=== PATIENT | female | born 1970 | race Caucasian/White ===

== ENCOUNTER 2017-10-13 09:55 | Outpatient (CLI) | payer BC ==
--- NOTE | 2017-10-13 11:39 | RAD ---
RIGHT FOOT TWO VIEWS: HISTORY: Pain. COMPARISON: None. 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 There is sclerosis on either side of the synchondrosis. 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 Large plantar and dorsal calcaneal spurs. Dorsal spurs of t he talar neck are present. Lisfranc interval appears to be maintained. 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 POS: [facility]
== END 2017-10-13 09:56 | disposition home or self-care (01) ==
LOC: RAD-FRANK 09:55
PROVIDERS: ATTEND Nurse Practitioner Family
DX: M79.671 Pain in right foot (principal); M19.071 Primary osteoarthritis, right ankle and foot

== ENCOUNTER 2017-12-16 16:08 | Outpatient (CLI) | payer BC | END 2017-12-16 16:09 | disposition home or self-care (01) | LOC: BICMAMMO 16:08 | PROVIDERS: ATTEND Obstetrics & Gynecology | DX: Z12.31 Encounter for screening mammogram for malignant neoplasm of breast (principal); R92.1 Mammographic calcification found on diagnostic imaging of breast | CPT/HCPCS: 77063; 77067 ==

== ENCOUNTER 2018-06-11 20:29 | Emergency (ER) | payer BC ==
[2018-06-11] MEDS ORDERED: Ondansetron HCl/PF 4 MG/2 ML Vial ONE (21:31)
[2018-06-11 21:46] LABS: #Basophils 0.1 thou/uL (0.0-0.2); #Eosinphils 0.6 thou/uL (0.0-0.7); #Lymphocytes 1.9 thou/uL (1.20-3.40); #Monocytes 0.6 thou/uL (0.11-0.59); #Neutrophils 5.6 thou/uL (1.40-6.50); %Basophils 0.7 % (0.0-1.0); %Eosinophils 6.8 % (0.0-10.0); %Lymphocytes 21.7 % (21.0-51.0); %Monocytes 6.5 % (0.0-10.0); %Neutrophils 64.2 % (42.0-75.0); Hemoglobin 13.4 g/dL (12.0-16.0); Mean Corpuscular HGB CONC 33.8 g/dL (32.0-36.0); Mean Corpuscular Hemoglobin 30.7 pg (27.0-31.0); Mean Corpuscular Volume 90.8 fL (78.0-98.0); Mean Platelet Volume 6.8 fL (7.4-10.4); Platelet Count 307 thou/uL (130-400); RBC Distribution Width 11.8 % (11.5-14.5); Red Blood Cell (RBC) Count 4.36 mill/uL (4.20-5.40); White Blood Cell (WBC) Count 8.7 thou/uL (4.8-10.8)
[2018-06-11 21:52] LABS: Bilirubin Negative (Negative); Blood, Urine Negative (Negative); Clarity CLOUDY (Clear); Glucose, Urine (Dipstick) Negative (Negative); Leukocyte Moderate (Negative); Nitrite Negative (Negative); Protein, Urine (Dipstick) Negative (Neg-Trace); Specific Gravity, Urine 1.009 (1.002-1.036); Urobilinogen 0.2 mg/dL (0.2-1.0); pH, Urine 7.5 (5.0-9.0)
--- NOTE | 2018-06-11 21:52 | RAD ---
PORTABLE UPRIGHT FRONTAL CHEST RADIOGRAPH 06/11/18 COMPARISON: None. HISTORY: Palpitations and chest pain. FINDINGS: No pneumothorax, pleural fluid, focal consolidation or alveolar edema. Heart and mediastinal contours appear within normal limits. Clips in right upper quadrant suggests prior cholecystectomy. IMPRESSION: No acute findings. POS: [facility]
[2018-06-11 21:53] LABS: Pregnancy Test - Urine (BHCG) Negative (Negative); Pregu Control Bar Appear? YES (CONTROL BAR); Specific Gravity 1.009 (1.002-1.036)
[2018-06-11 21:54] LABS: Bacteria/HPF None Seen HPF (None Seen); Hyaline Casts/LPF 0-3 HYALINE CAST LPF (0-3 Hyaline); Pregu Control Background? CLEAR/WHITE (CLR/WHITE); RBC/HPF 0-3 HPF (0-3); Squamous Epithelial None Seen HPF (0-3)
[2018-06-11 21:57] LABS: ALT (SGPT) 14 U/L (8-55); AST (SGOT) 18 U/L (5-34); Albumin 4.1 g/dL (3.5-5.0); Alkaline Phosphatase 93 U/L (40-150); Anion Gap 13 mmol/L (10-20); BUN (Urea Nitrogen) 17 mg/dL (7.0-18.7); Bilirubin, Total 0.4 mg/dL (0.2-1.2); CK (CPK) 91 U/L (29-168); Calc. Creatinine Clearance 0 mL/min (70-130); Calcium 9.4 mg/dL (7.8-10.44); Carbon Dioxide 24 mmol/L (22-29); Chloride 104 mmol/L (98-107); Estimated GFR-MDRD 79; Globulin 2.5 g/dL (2.4-3.5); Glucose 89 mg/dL (70-105); Lipase 23 U/L (8-78); Potassium 3.9 mmol/L (3.5-5.1); Protein, Total 6.6 g/dL (6.0-8.3); Sodium 137 mmol/L (136-145)
[2018-06-11 22:01] LABS: CKMB 1.4 ng/mL (0-6.6); Troponin I Less than 0.010 ng/mL (< 0.028)
== END 2018-06-11 23:41 | disposition home or self-care (01) ==
LOC: ERS 20:29
DX: R00.2 Palpitations (principal); G43.909 Migraine, unspecified, not intractable, without status migrainosus; E11.9 Type 2 diabetes mellitus without complications; F41.9 Anxiety disorder, unspecified; F32.9 Major depressive disorder, single episode, unspecified; Z79.899 Other long term (current) drug therapy; Z79.82 Long term (current) use of aspirin
CPT/HCPCS: 71045; 80053; 81003; 81015; 81025; 82550; 82553; 83690; 84484; 85025; 87077; 87086; 93005; 94760; 96374; J2405

== ENCOUNTER 2018-06-14 08:56 | Outpatient (CLI) | payer BC ==
--- NOTE | 2018-06-14 10:00 | RAD ---
FOUR VIEW LEFT KNEE: Clinical history: Pain. FINDINGS: There is moderate degenerative capsular distention at the suprapatellar bursa. No acute fracture is v isualized. There is mild osteoarthritis. IMPRESSION: 1. No acute osseous abnormality. 2. Moderate joint capsular distention. Correlate clinically. POS: [facility]
== END 2018-06-14 08:57 | disposition home or self-care (01) ==
LOC: RAD-FRANK 08:56
PROVIDERS: ATTEND Nurse Practitioner Family
DX: M25.562 Pain in left knee (principal); M25.862 Other specified joint disorders, left knee

== ENCOUNTER 2019-01-24 01:19 | Outpatient (CLI) | payer BC ==
[2019-01-24 17:45] LABS: #Basophils 0.1 thou/uL (0.0-0.2); #Eosinphils 0.1 thou/uL (0.0-0.7); #Lymphocytes 2.1 thou/uL (1.20-3.40); #Monocytes 0.7 thou/uL (0.11-0.59); %Basophils 0.8 % (0.0-1.0); %Eosinophils 1.8 % (0.0-10.0); %Lymphocytes 26.7 % (21.0-51.0); %Monocytes 8.2 % (0.0-10.0); %Neutrophils 62.5 % (42.0-75.0); Hemoglobin 13.1 g/dL (12.0-16.0); Mean Corpuscular HGB CONC 33.9 g/dL (32.0-36.0); Mean Corpuscular Hemoglobin 30.8 pg (27.0-31.0); Mean Corpuscular Volume 90.9 fL (78.0-98.0); Mean Platelet Volume 6.3 fL (7.4-10.4); Platelet Count 327 thou/uL (130-400); RBC Distribution Width 11.8 % (11.5-14.5); Red Blood Cell (RBC) Count 4.25 mill/uL (4.20-5.40)
[2019-01-24 18:33] LABS: Anion Gap 13 mmol/L (10-20); BUN (Urea Nitrogen) 15 mg/dL (7.0-18.7); Calc. Creatinine Clearance 0 mL/min (70-130); Calcium 9.5 mg/dL (7.8-10.44); Carbon Dioxide 25 mmol/L (22-29); Chloride 106 mmol/L (98-107); Estimated GFR-MDRD 79; Glucose 113 mg/dL (70-105); Potassium 3.5 mmol/L (3.5-5.1); Sodium 140 mmol/L (136-145)
--- NOTE | 2019-01-26 12:00 | EKG ---
Test Reason : Blood Pressure : / mmHG Vent. Rate : 089 BPM Atrial Rate : 089 BPM P-R Int : 156 ms QRS Dur : 082 ms QT Int : 368 ms P-R-T Axes : 057 -04 045 degrees QTc Int : 447 ms Normal sinus rhythm Normal ECG When compared with ECG of 11-JUN-2018 20:34, No significant change was found Confirmed by DR. Shaheen ALONSO ([id number]) on 01/26/2019 11:59:31 AM Referred By: IERO Confirmed By:DR. Shaheen ALONSO
== END 2019-01-24 01:20 | disposition home or self-care (01) ==
LOC: LABBT 01:19
PROVIDERS: ATTEND Orthopaedic Surgery
DX: Z01.818 Encounter for other preprocedural examination (principal); S83.512A Sprain of anterior cruciate ligament of left knee, initial encounter
CPT/HCPCS: 80048; 85025; 93005; 93010

== ENCOUNTER 2019-01-26 06:11 | Observation (INO) | payer BC ==
[2019-01-24 16:51] VITALS: BMI 29.9
[2019-01-26] MEDS ORDERED: Fentanyl 100 MCG/2 ML VIAL ONE ×3 (07:01→09:45)
[2019-01-26] MEDS ORDERED: Midazolam HCl 2 mg/2 ml Vial ONE (07:01)
[2019-01-26] MEDS ORDERED: Dexamethasone 4 mg/ml Vial ONE (07:01)
[2019-01-26] MEDS ORDERED: Zolpidem Tartrate 5 MG TAB PO PRN (07:41)
[2019-01-26] MEDS ORDERED: HYDROcodone/Acetaminophen 10/325 mg Tablet PO PRN (07:41)
[2019-01-26] MEDS ORDERED: Ropivacaine 0.2% 550 ML 550 ML NERVE BLCK SCH (07:41)
[2019-01-26] MEDS ORDERED: Ondansetron PF 4 MG/2 ML Vial IVP PRN (07:41)
[2019-01-26] MEDS ORDERED: Promethazine HCl 25 MG/ML VIAL IM PRN (07:41)
[2019-01-26] MEDS ORDERED: traMADol HCl 50 MG TAB PO PRN ×2 (07:41)
[2019-01-26] MEDS ORDERED: Meperidine HCl/PF 25 MG/ML VIAL ONE (09:44)
[2019-01-26] MEDS ORDERED: Ondansetron HCl/PF 4 MG/2 ML Vial IVP PRN (10:06)
[2019-01-26] MEDS ORDERED: Non-Formulary Medication 1 EACH PO PRN (10:06)
[2019-01-26] MEDS ORDERED: Promethazine HCl 25 MG/ML VIAL IM/IV PRN (10:06)
[2019-01-26] MEDS ORDERED: Meperidine HCl/PF 25 MG/ML VIAL IV PRN (10:06)
[2019-01-26] MEDS ORDERED: Morphine 4 MG/ML VIAL SLOW IVP PRN (10:37)
[2019-01-26] MEDS ORDERED: Bisacodyl 10 MG SUPP PR PRN (10:37)
[2019-01-26] MEDS ORDERED: Milk Of Magnesia 30 ML UDCUP PO PRN (10:37)
[2019-01-26] MEDS ORDERED: diphenhydrAMINE 50 MG CAP PO PRN (10:37)
[2019-01-26] MEDS ORDERED: Methocarbamol 500 MG TAB PO PRN (10:37)
[2019-01-26] MEDS ORDERED: Acetaminophen 500 MG TAB PO PRN (10:37)
[2019-01-26] MEDS ORDERED: SUMAtriptan Succinate 50 MG TAB PO PRN (10:38)
[2019-01-26] MEDS ORDERED: Promethazine HCl 12.5 MG SUPP PR PRN (10:38)
[2019-01-26] MEDS ORDERED: Sodium Chloride 0.9% 1,000 ML IV SCH (10:45)
[2019-01-26] MEDS ORDERED: Ketorolac Tromethamine 30 MG/ML VIAL IVP SCH (12:00)
[2019-01-26] MEDS: Fentanyl 100 MCG/2 ML VIAL SLOW IVP PRN ×2 (13:03→21:42)
[2019-01-26] MEDS ORDERED: Ropivacaine 0.5% HCl/PF (150 MG/30 ML VIAL) ONE (14:41)
[2019-01-26] MEDS ORDERED: Ropivacaine 0.2% HCl/PF (40 MG/20 ML VIAL) ONE (14:41)
[2019-01-26] MEDS ORDERED: PROPOFOL 200 MG/20 ML VIAL ONE (15:03)
[2019-01-26] MEDS ORDERED: Ketorolac Tromethamine 30 MG/ML VIAL ONE (15:03)
[2019-01-26] MEDS ORDERED: Dexamethasone 20 MG/5 ML VIAL ONE (15:03)
[2019-01-26] MEDS ORDERED: Ondansetron PF 4 MG/2 ML Vial ONE (15:03)
[2019-01-26] MEDS: CEFAZOLIN 2 GM in Premix Bag 1 BAG IVPB SCH ×2 (15:20→22:42)
[2019-01-26] MEDS: Ketorolac Tromethamine 30 MG/ML VIAL IVP SCH ×2 (15:20→20:36)
--- NOTE | 2019-01-26 16:07 | OP ---
DATE OF PROCEDURE: 01/26/2019 PREOPERATIVE DIAGNOSES: Left knee anterior cruciate ligament tear and medial meniscus tear. POSTOPERATIVE DIAGNOSES: Left knee anterior cruciate ligament tear and medial meniscus tear. PROCEDURES PERFORMED: 1. Left leg exam under anesthesia. 2. Left knee arthroscopy with arthroscopically assisted anterior cruciate ligament reconstruction using an allograft Achilles tendon. 3. Partial medial meniscectomy. HYDRAULIC OIL TOOL OPERATOR: Vic Ramos PA-C ESTIMATED BLOOD LOSS: Minimal. COMPLICATIONS: None. ANESTHESIA: She did have a general anesthetic as well as a preoperative block. IMPLANTS: We used a 7 x 25 metal interference screw on the femur. We used a 9 x 23 [employer] interference screw in the tibial tunnel. We used a bicortical screw with a soft tissue washer as backup on the tibia. CONDITION: She went to recovery room in stable condition. INDICATIONS: This 48-year-old female comes in complaining of left knee instability and giving away as well as pain and swelling. At this time, she wished to have surgery. DESCRIPTION OF PROCEDURE: After all appropriate consent forms were explained and signed, she was given a general anesthetic. Once the level of anesthesia was appropriate, an exam under anesthesia was performed of the left lower extremity. Positive Letitia and positive pivot shift were noted. She was stable to varus and valgus stress and a negative posterior drawer. At this time, tourniquet was placed on left thigh and leg was placed in arthroscopic leg silva. The limb was then prepped and draped in standard surgical fashion. Limb was then exsanguinated and tourniquet was taken to 300 mmHg. Inferolateral portal was established. Scope was placed into the knee joint. A needle localization technique was then used to make our medial working portal. Diagnostic arthroscopy commenced in the notch. The ACL was found to be torn off the femur. The PCL was intact. Remnant was removed with a shaver. Medial compartment was evaluated. The femoral and tibial cartilage were in good condition. There was a complex tear of the posterior horn of the medial meniscus with a flap component as it turned into the body. A partial meniscectomy was performed using meniscal biter and a shaver to get back to a stable base. Once this was done, lateral compartment was evaluated and felt to be intact. Gutters were swept through and no loose bodies were noted, and the patellofemoral joint was in good condition. At this time, notchplasty was performed. Once the notchplasty was done and the graft had been made on the back table so that the femoral plug was approximately 20 mm in length and a 10 mm diameter, we went ahead and flexed the knee up, and through the medial portal, placed a guidepin through an [id number] guide and up and out the anterolateral thigh. A 10 mm reamer was used to ream our tunnel to nearly 30 mm. At this time, all loose bony and cartilaginous debris were removed from the knee joint. We then went ahead and used our dilators to dilate an impacted tunnel. Tibial guide was then set at the knee at 55 degrees, and a 10-mm reamer was done to ream our tibial tunnel. Again, the dilator was used to dilate and then packed our bone in the tibial tunnel. At this time, we went dry and we flexed the knee up again, placed our guidewire up and out the anterolateral thigh using this to pull a passing suture up into the knee joint. This was then passed down through the tibial tunnel and used to pass our graft up into the knee. A 7 x 25 metal interference screw was then used to fixate our femoral side. Once this was done, the knee was taken through a full motion, and in essentially full extension, the knee was fixated with a 9 x 23 [employer] screw up the tibial tunnel while the posterior drawer was being applied. We then drilled, tapped, and placed a bicortical screw with a soft tissue washer to back this up. Once this was done, again the knee was taken through full range of motion. She went to full extension. She had a full flexion. There was no impingement under direct visualization, and at this time, the scope was removed. Knee was drained. We then closed all of our incisions using deep Vicryl, 2-0 Vicryl, and sutures on the skin. A bulky sterile dressing was applied. Tourniquet was let down. Toes pinked up nicely. The patient was awakened and taken to recovery room in stable condition. All counts were correct at the end of the case and she did receive preoperative IV antibiotics. Job ID: [id number]
[2019-01-26] MEDS: HYDROcodone/Acetaminophen 10/325 mg Tablet PO PRN (20:35)
[2019-01-26] MEDS: Famotidine 20 MG TAB PO SCH (20:35)
[2019-01-26] MEDS ORDERED: Loratadine 10 MG TAB PO SCH (21:00)
[2019-01-26] MEDS ORDERED: clonazePAM 0.5 MG TAB PO SCH (21:00)
[2019-01-27] MEDS: HYDROcodone/Acetaminophen 10/325 mg Tablet PO PRN ×2 (04:12→10:00)
[2019-01-27] MEDS: Ketorolac Tromethamine 30 MG/ML VIAL IVP SCH ×2 (04:15→08:54)
[2019-01-27] MEDS: Fentanyl 100 MCG/2 ML VIAL SLOW IVP PRN (07:14)
[2019-01-27] MEDS ORDERED: metFORMIN 500 MG TAB PO SCH (08:00)
[2019-01-27] MEDS: Famotidine 20 MG TAB PO SCH (08:53)
[2019-01-27] MEDS ORDERED: FLUoxetine HCl 20 MG CAP PO SCH (09:00)
[2019-01-27] MEDS ORDERED: Aspirin 81 mg Enteric Coated Tablet PO SCH (09:00)
[2019-01-27] MEDS ORDERED: METHIONINE PO SCH (09:00)
[2019-01-27] MEDS ORDERED: Multivit, Therapeutic 1 TAB PO SCH (09:00)
[2019-01-27] MEDS ORDERED: Cyanocobalamin (Vitamin B-12) 1,000 MCG TAB PO SCH (09:00)
[2019-01-27 11:31] VITALS: BP 106/74; TEMP 98.1
== END 2019-01-27 11:55 | disposition home or self-care (01) ==
LOC: SDC 06:11 → SURG A 11:27
PROVIDERS: ADMIT Orthopaedic Surgery; ATTEND Orthopaedic Surgery
PROC: 0SBD4ZZ Excision of Left Knee Joint, Percutaneous Endoscopic Approach (ICD-10-PCS; principal; 2019-01-26)
PROC: 0MRP47Z Replacement of Left Knee Bursa and Ligament with Autologous Tissue Substitute, Percutaneous Endoscopic Approach (ICD-10-PCS; 2019-01-26)
DX: S83.512A Sprain of anterior cruciate ligament of left knee, initial encounter (principal); S83.232A Complex tear of medial meniscus, current injury, left knee, initial encounter; M17.12 Unilateral primary osteoarthritis, left knee; F41.9 Anxiety disorder, unspecified; F32.9 Major depressive disorder, single episode, unspecified; G43.909 Migraine, unspecified, not intractable, without status migrainosus; F90.9 Attention-deficit hyperactivity disorder, unspecified type; Z79.82 Long term (current) use of aspirin; Z79.84 Long term (current) use of oral hypoglycemic drugs; Z79.899 Other long term (current) drug therapy; Z91.018 Allergy to other foods; Z88.8 Allergy status to other drugs, medicaments and biological substances; W54.1XXA Struck by dog, initial encounter
CPT/HCPCS: 96374; 96375; 96376; A4306; C1713; G0378; J0690; J1100; J1885; J2175; J2250; J2405; J2704; J2795; J3010

== ENCOUNTER 2019-08-27 19:30 | Outpatient (CLI) | payer BC | END 2019-08-27 19:31 | disposition home or self-care (01) | LOC: SLEEPLAB 19:30 | PROVIDERS: ATTEND Internal Medicine Critical Care Medicine | DX: G47.33 Obstructive sleep apnea (adult) (pediatric) (principal); G25.81 Restless legs syndrome; G47.61 Periodic limb movement disorder; R53.83 Other fatigue; F32.9 Major depressive disorder, single episode, unspecified; G47.10 Hypersomnia, unspecified | CPT/HCPCS: 95810 ==

== ENCOUNTER 2021-01-16 13:09 | Outpatient (CLI) | payer BC | END 2021-01-16 13:10 | disposition home or self-care (01) | LOC: RAD-FRANK 13:09 | PROVIDERS: ATTEND Nurse Practitioner Family | DX: R07.89 Other chest pain (principal) | CPT/HCPCS: 71046 ==

== ENCOUNTER 2022-01-09 14:46 | Outpatient (CLI) | payer BC | END 2022-01-09 14:47 | disposition home or self-care (01) | LOC: RAD-FRANK 14:46 | PROVIDERS: ATTEND Nurse Practitioner Family | DX: S69.91XA Unspecified injury of right wrist, hand and finger(s), initial encounter (principal) ==

== ENCOUNTER 2022-06-16 08:51 | Outpatient (CLI) | payer BC | END 2022-06-16 08:52 | disposition home or self-care (01) | LOC: BICMAMMO 08:51 | PROVIDERS: ATTEND Nurse Practitioner Family | DX: Z12.31 Encounter for screening mammogram for malignant neoplasm of breast (principal) | CPT/HCPCS: 77063; 77067 ==

== ENCOUNTER 2022-10-25 18:09 | Emergency (ER) | payer BC ==
[2022-10-25] MEDS ORDERED: Magnesium 2 GM/50 ML BAG (IN WATER) ONE (19:20)
[2022-10-25] MEDS ORDERED: Aspirin Chewable 81 MG TAB ONE (19:20)
[2022-10-25 19:23] LABS: #Basophils 0.1 thou/uL (0.0-0.2); #Eosinphils 0.1 thou/uL (0.0-0.7); #Lymphocytes 2.1 thou/uL (1.20-3.40); #Monocytes 0.5 thou/uL (0.11-0.59); #Neutrophils 4.3 thou/uL (1.40-6.50); %Basophils 0.7 % (0.0-1.0); %Lymphocytes 29.5 % (21.0-51.0); %Monocytes 7.2 % (0.0-10.0); %Neutrophils 60.5 % (42.0-75.0); Mean Corpuscular HGB CONC 33.7 g/dL (32.0-36.0); Mean Corpuscular Hemoglobin 31.5 pg (27.0-31.0); Mean Corpuscular Volume 93.5 fl (78.0-98.0); Mean Platelet Volume 6.3 fL (7.4-10.4); Platelet Count 331 10x3/uL (130-400); RBC Distribution Width 11.6 % (11.5-14.5); Red Blood Cell (RBC) Count 4.44 mill/uL (4.20-5.40); White Blood Cell (WBC) Count 7.1 10x3/uL (4.8-10.8)
[2022-10-25 19:43] LABS: Acetaminophen Less than 10.0 mcg/mL (10.0-30.0); Alcohol Less than 10 mg/dL (Less than 10); CK (CPK) 66 U/L (29-168); Salicylate Less than 8.0 mg/dL (15.0-30.0)
[2022-10-25 19:49] LABS: ALT (SGPT) 7 U/L (8-55); AST (SGOT) 12 U/L (5-34); Alkaline Phosphatase 66 U/L (40-110); Anion Gap 12 mmol/L (10-20); BUN (Urea Nitrogen) 7 mg/dL (9.8-20.1); Bilirubin, Total 0.4 mg/dL (0.2-1.2); Calc. Creatinine Clearance 0 mL/min (70-130); Calcium 9.1 mg/dL (7.8-10.44); Carbon Dioxide 28 mmol/L (22-29); Chloride 104 mmol/L (98-107); Estimated GFR 101; Globulin 2.2 g/dL (2.4-3.5); Glucose 80 mg/dL (70-105); Lipase 19 U/L (8-78); Magnesium 1.9 mg/dL (1.6-2.6); Potassium 3.7 mmol/L (3.5-5.1); Protein, Total 6.2 g/dL (6.0-8.3)
[2022-10-25 19:51] LABS: Sodium 140 mmol/L (136-145)
[2022-10-25 20:09] LABS: Amphetamine Not Detected (NotDetected); Barbiturates Screen Not Detected (NotDetected); Benzodiazepine Screen Not Detected (NotDetected); Cocaine Metabolite Screen Not Detected (NotDetected); Methadone Not Detected (NotDetected); Methamphetamine Not Detected (NotDetected); Opiate Screen Not Detected (NotDetected); Oxycodone Screen Not Detected (NotDetected); Phencyclidine (PCP) Not Detected (NotDetected); THC/Cannabinoid Screen Not Detected (NotDetected); Tricyclic Screen Not Detected (NotDetected)
== END 2022-10-25 21:00 | disposition home or self-care (01) ==
LOC: ERS 18:09
DX: R00.2 Palpitations (principal); E11.9 Type 2 diabetes mellitus without complications; G43.909 Migraine, unspecified, not intractable, without status migrainosus
CPT/HCPCS: 36415; 80053; 80306; 80307; 82550; 83690; 83735; 84443; 84484; 85025; 93005; 96374; J3475

== ENCOUNTER 2023-07-23 08:53 | Outpatient (CLI) | payer BC | END 2023-07-23 08:54 | disposition home or self-care (01) | LOC: BICMAMMO 08:53 | PROVIDERS: ATTEND Physician Assistant | DX: Z12.31 Encounter for screening mammogram for malignant neoplasm of breast (principal) | CPT/HCPCS: 77063; 77067 ==